=== PATIENT | female | born 1985 | race Caucasian/White ===

== ENCOUNTER 2016-06-05 06:40 | Day surgery (SDC) | payer OTHER ==
[~2016-06-05] VITALS: Ht 170.2 cm; Wt 86.2 kg
[~2016-06-05 06:40] MED LIST: AMITRIPTYLINE H10 MG PO; DAILY MULTIPLE1 EACH PO; DEPO-PROVER150 MG/ML IM; MOTRIN800 MG PO; ULTRAM50 MG PO; VALTREX50 MG/ML PO; VICODIN 5-3001 EACH PO; ZOLOFT25 MG PO
[2016-06-05 07:08] VITALS: BP 130/72
[2016-06-05 08:55] LABS: METH RESISTANT S AUREUS PCR NEGATIVE (NEGATIVE)
[2016-06-05 08:57] LABS: PROBE CHECK PASS; SPECIMEN PROCESSING CONTROL PASS
[2016-06-05] MEDS ORDERED: MOTRIN600 MG PO (09:28)
[2016-06-05] MEDS ORDERED: NORCO 5/3251 TABLET PO (09:28)
[2016-06-05 10:20] VITALS: BP 127/90
[2016-06-05 11:20] VITALS: BP 112/78
== END 2016-06-05 11:34 | disposition home or self-care (01) ==
LOC: SDC 06:40
PROVIDERS: Obstetrics & Gynecology
PROC: 0UL78DZ Occlusion of Bilateral Fallopian Tubes with Intraluminal Device, Via Natural or Artificial Opening Endoscopic (ICD-10-PCS; principal; 2016-06-05)
DX: Z30.2 Encounter for sterilization (principal); M51.36 Other intervertebral disc degeneration, lumbar region; Z87.891 Personal history of nicotine dependence
CPT/HCPCS: 87641; J0330; J1050; J1100; J1170; J1885; J2250; J2405; J3010